=== PATIENT | male | born 1985 | race Caucasian/White ===

== ENCOUNTER 2016-12-03 20:37 | Emergency (ER) | payer BC ==
[~2016-12-03] VITALS: Ht 170.2 cm; Wt 91.7 kg
--- OUTSIDE RECORDS SUMMARY | 2016-12-03 20:41 | XMS REPORT ---
Author Author GENERATED, SYSTEM Organization Unknown Address Unknown Phone Unavailable Care Team Providers Care Boat Rental Clerk Name Role Phone PP Unavailable Reason For Visit Chief Complaint LAC TO RT HAND DORSAL TO LATERAL SIDE Social History Functional Status Vital Signs Results DX Radiology from 05/09/2016 10:35 AMHAND LEFT 3 VIEWS History: laceration . Technique: 3view hand Priors: None. Findings: There is no fracture. There is no dislocation. The distal radius and ulna appear intact. The carpal bones and joint spaces appear well maintained. There is a soft tissue injury to the medial aspect of the hand. There is a punctate metallic density adjacent to this. This may be on the skin surface blurry soft tissue foreign body is not excluded. A few additional scattered densities in the 3rd and 5th digits are likely on the skin surface. Impression: Soft tissue injury medially in with a small radiopaque foreign body as detailed above. Electronically signed by: Zac Ricci MD Dictated: 05/09/2016 11:25 Problems Encounter Diagnosis No relevant problems exist. Encounters Encounter Diagnosis No relevant problems exist. Plan of Care Procedures No relevant procedures performed. Immunizations No immunizations administered or ordered. Hospital Course Hospital Discharge Instructions Allergies, Adverse Reactions, Alerts * Latex Allergy has not been assessed. * IV Contrast Allergy has not been assessed. Medication Medication reconciliation has not been performed.
--- OUTSIDE RECORDS SUMMARY | 2016-12-03 20:41 | XMS REPORT ---
Author Author GENERATED, SYSTEM Organization Unknown Address Unknown Phone Unavailable Care Team Providers Care Outbound Sales Specialist Name Role Phone PP Unavailable Reason For Visit Chief Complaint BACK PAIN Social History Functional Status Vital Signs Results Problems Encounter Diagnosis No relevant problems exist. [...]
[2016-12-03 20:50] VITALS: TEMP 97.9; Ht 170.2 cm; Wt 91.7 kg
--- NOTE | 2016-12-03 22:33 | NUR ---
ROOM AMBULATORY TO ROOM
--- OUTSIDE RECORDS SUMMARY | 2016-12-03 22:43 | XMS REPORT ---
Author Author GENERATED, SYSTEM Organization Unknown Address Unknown Phone Unavailable Care Team Providers Care Metal Painter Name Role Phone PP Unavailable Reason For [...]
--- OUTSIDE RECORDS SUMMARY | 2016-12-03 22:43 | XMS REPORT ---
Author Author GENERATED, SYSTEM Organization Unknown Address Unknown Phone Unavailable Care Team Providers Care Physical Meteorologist Name Role Phone PP Unavailable Reason For [...]
[2016-12-03] MEDS ORDERED: [UNRECOGNIZED DRUG - REMARK] (22:44)
[2016-12-03] MEDS ORDERED: NO MEDICATIONS (22:44)
--- NOTE | 2016-12-03 22:57 | ERPDOC ---
Departure Disposition Decision Date: Dec 03, 2016 Disposition Decision Time: 23:55 Disposition: 01 DISCHARGED HOME, SELF-CARE Impression Impression Impression: Primary Impression: Costochondritis Severity: Mild Condition: Improved Seen By: Physician only Referrals: YOUR PHYSICIAN 1 Week Patient Instructions: Noncardiac Chest Pain (ED), Chest Wall Pain (ED) Problems/Meds/Labs Reviewed?: Yes Medications reviewed and manag: Yes Additional Instructions: You have chest wall pain. This can be due to things like muscle strains, rib irritation, etc. Take naproxen for your pain and follow up with your doctor next week. Follow up care ordered?: Yes Mental Status: Alert, Oriented HPI - Chest Pain General Chief Complaint: Chest Pain Stated Complaint: CHEST PAIN ON LOWER RIGHT SIDE Time Seen by Provider: 22:34 Source: patient, family Exam Limitations: no limitations HPI - Chest Pain Initial Comments 30yo man presents to the ER for right-sided CP. Has had sharp, right-sided, chest wall pain since 0600 this AM. 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 Has only been at this job 1mo and has other MSK complaints. Sx have recurred numerous times throughout the day. He has a significant cardiac FHx among the men in his family , so he was concerned. Occurred At: work Onset/Timing: Rapid Duration: 12-24 hrs Pain/Severity Scale: Now: 0/10, Worst: 4/10 Activities at Onset/Context: activity Location: anterior R Quality: sharp Associated Symptoms: denies symptoms Chest Pain Radiation: no radiation Nitro Today/Relief: no nitro taken today Aspirin Treatment Today: contraindicated Aspirin contraindicated becaus: Other Prior Chest Pain/Cardiac Vasu: no prior chest pain Hx of Similar Symptoms: No Allergies: Coded Allergies: NKDA (Verified Allergy, Unknown, 12/03/16) Viagra/ED med in past 36 hrs: No Past History Past Medical History Pt denies signifigant PMH Review of Systems Cardiovascular Cardiac: chest pain All other Systems All Other Systems: Reviewed and Negative Physical Exam General General Nourishment: well nourished, well developed, appears stated age, no acute distress, adult, obese General Body Habitus: well groomed Vitals and Pain First Documented Vital Signs Date Time Temp Pulse Resp B/P Pulse Ox O2 Delivery O2 Flow Rate FiO2 12/03/16 20:50 97.9 68 16 145/88 95 Room Air Weight: Kilograms: 91.700 Height (feet): 5 Height (inches): 7.00 Triage Pain Scale: RN VS reviewed by Provider: Yes Normal Exams: Head: Normocephalic w/o trauma Eyes: Pupils are PERRLA w/ EOMI, No scleral icterus, irritation ENMT: No facial trauma, nasal exudates, pharyngeal erythema Neck: Full range of motion, without adenopathy, JVD Lymphatic: No lymphadenopathy Musculoskeletal: No tenderness, or deformity noted Integumentary: No rashes, hives, or bruising noted Neurologic: Patient is alert, and oriented Psychiatric: Patient exhibits, appropriate attention Respiratory (brief) Respiratory: FOUND: clear all herrera, equal bilaterally, symmetrical, NOT FOUND : rales, wheezes Cardiovascular (brief) Cardiac: FOUND: regular rate, regular rhythm, NOT FOUND: click, gallop, murmur , pedal edema, peripheral edema, rub Capillary Refill: <2 sec Pulses: all distal extremities, equal, strong Abdomen (brief) Abdominal Brief: FOUND: bowel normo active x4, soft, NOT FOUND: distended, hepatosplenomegaly, pulsatile mass, tender Differential Diagnoses Considering: Acute OK, Anxiety/Panic, Aortic Dissection, Biliary Colic, Costochondritis, Esophageal Spasm, GERD, Pericarditis, Pleurisy, Pneumothorax, Pneumonia, PSVT, Pulmonary Edema, Rib Fracture, Muscle Spasm Progress Results/Orders Orders Lab Results Progress Progress Pts hx is suggestive of costochondritis. No hx, PE, lab, or rad evidence of OK, PE, PTX, PNA, or aortic dissection. Discussed dx, prognosis, and tx with pt, who voiced understanding. F/u with PCM for further eval/treatment. EKG EKG : Rate: 60-100 Rhythm: sinus Polk: normal QRS: normal Intervals: normal ST/T: non-specific changes Subtle Signs LVH Interpreted by: signing physician Xray Xray : Xray: CXR Portable Interpretation: Normal, Interpreted by JACKY Hou DO Dec 03, 2016 22:57 22:52 Hemagram - Cbc No Diff LAB 12/03/16 Complete Lab Results Laboratory Tests Test 12/03/16 23:09 White Blood Count 6.7T/MM3 Red Blood Count 4.51M/MM3 Hemoglobin 14.0GM/DL Hematocrit 42.2% Mean Corpuscular Volume 93.6UM3 Mean Corpuscular Hemoglobin 31.0UUG Mean Corpuscular Hemoglobin Concent 33.2GM/DL RDW Standard Deviation 42.2FL Platelet Count 296T/MM3 Mean Platelet Volume 9.6UM3 Prothromb Time International Ratio 0.98 Turbidity < 20 Sodium Level 142MEQ/L Potassium Level 4.0MEQ/L Chloride Level 103MEQ/L Carbon Dioxide Level 22MEQ/L Anion Gap 17MEQ/L Blood Urea Nitrogen 25.0MG/DL Creatinine 1.1MG/DL Glomerular Filtration Rate Calc 79 BUN/Creatinine Ratio 23RATIO Glucose Level 80MG/DL Calculated Osmolality 276MOSM/KG Calcium Level 9.8MG/DL Icterus Index < 2 Troponin I < 0.012ng/ml [id number] Natriuretic Peptide 24PG/ML Chemistry Specimen Hemolysis 21 Progress Progress Pts hx is suggestive of costochondritis. No hx, PE, lab, or rad evidence of OK, PE, PTX, PNA, or aortic dissection. Discussed dx, prognosis, and tx with pt, who voiced understanding. F/u with PCM for further eval/treatment. EKG EKG : Rate: 60-100 Rhythm: sinus Polk: normal QRS: normal Intervals: normal ST/T: non-specific changes Subtle Signs LVH Interpreted by: signing physician Xray Xray : Xray: CXR Portable Interpretation: Normal, Interpreted by JACKY Hou DO Dec 03, 2016 22:57
[2016-12-03 23:19] LABS: HCT - HEMATOCRIT 42.2 % (41-53); MEAN CORPUSCULAR HGB CONC(MCHC 33.2 GM/DL (31-37); MEAN CORPUSCULAR VOLUME 93.6 UM3 (80-100); MEAN PLATELET VOLUME 9.6 UM3 (9.4-12.4); RED BLOOD COUNT 4.51 M/MM3 (4.50-5.90); WBC - WHITE BLOOD COUNT 6.7 T/MM3 (4.5-11.0)
[2016-12-03 23:27] LABS: INR 0.98 (0.76-1.04); PROTHROMBIN TIME 10.7 SEC (9.31-12.49)
[2016-12-03 23:32] LABS: ANION GAP 17 MEQ/L (5-15); BUN/CREATININE RATIO 23 RATIO (6-26); CALCIUM 9.8 MG/DL (8.4-10.2); CHLORIDE 103 MEQ/L (98-107); CO2 - CARBON DIOXIDE 22 MEQ/L (22-30); CREATININE 1.1 MG/DL (0.8-1.5); GLOMERULAR FILTRATION RATE 79; GLUCOSE 80 MG/DL (75-110); SODIUM 142 MEQ/L (134-144)
[2016-12-03 23:44] LABS: PROBNP 24 PG/ML (0-175)
[2016-12-04 00:12] VITALS: BP 136/92; PULSE 58; RESP 12; O2SAT 98
--- NOTE | 2016-12-04 00:12 | NUR ---
DEPART PT IS DISCHARGED AT THIS TIME, INSTRUCTIONS ARE REVIEWED AND UNDERSTANDING IS VOICED. PT DENIES ANY PAIN AND LEAVES AMBULATORY.
--- NOTE | 2016-12-04 07:44 | DI ---
Indication: ITS.REASON: Sharp chest pain in the right chest starting this morning PROCEDURE: CHEST 1 VIEW: Encounter: Initial Comparison: None FINDINGS: The lungs are clear. There is no abnormal airspace opacity, pleural effusion or pneumothorax identified. The heart size, pulmonary vasculature and mediastinum are within normal limits. No significant skeletal abnormality is seen. IMPRESSION: No acute cardiopulmonary abnormality. .
== END 2016-12-04 00:12 | disposition home or self-care (01) ==
LOC: ED 20:37
DX: M94.0 Chondrocostal junction syndrome [Tietze] (principal)
CPT/HCPCS: 36415; 80048; 83880; 84484; 85027; 85610; 93005